=== PATIENT | male | born 1950 | race Caucasian/White ===

== ENCOUNTER 2017-03-17 14:23 | Emergency (ER) | payer OTHER, MEDICARE ==
[~2017-03-17] VITALS: Ht 167.6 cm; Wt 83.0 kg
[2017-03-17 14:27] VITALS: TEMP 36.6; Ht 167.6 cm; Wt 83.0 kg
--- NOTE | 2017-03-17 15:00 | EMERGENCY ROOM VISIT NOTE ---
History Report prepared by Ramirez: Nel Centeno Under the Supervision of: Dr. Cosme Hamilton M.D. First contact with patient: 14:45 Chief Complaint: CARDIAC ASSESSMENT Stated Complaint: ABNORMAL EKG-[facility] History of Present Illness The patient is a 67 year old male who presents to the Emergency Room with complaints of persistent bradycardia. He reports he went to [facility] this morning for dizziness and a feeling of his right ear being "clogged up". Both symptoms started last night. At [facility], he had a routine EKG that came back abnormal and his pulse was in the 40's, so he was referred to the ED. His PCP is Dr. Pennington with [facility]. The patient denies any previous cardiac history. He takes no medications to control his heart rate. He does take daily medication for cholesterol, GERD and anxiety. He believes his heart rate is typically slow, but he is not sure what the average number is. The patient denies any recent health issues or environmental factors that could be affecting his heart. He states at [facility], the provider he saw could find no wax in his right ear, but discussed starting him on steroids or an antibiotic. 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 A total of 10 systems reviewed and were otherwise negative. Past Medical & Surgical Medical Problems: (1) Anxiety (2) GERD (gastroesophageal reflux disease) (3) Hypercholesterolemia Social History Smoking Status: Never Smoker Alcohol Use: occasionally Drug Use: none Marital Status: Housing Status: lives with family Occupation Status: employed Current/Historical Medications Scheduled Doxepin (Sinequan), 10 MG PO HS Lorazepam (Ativan), 0.5 MG PO HS Omeprazole (Prilosec), 20 MG PO QAM Sertraline (Zoloft), 150 MG PO HS Simvastatin (Zocor), 40 MG PO QPM Scheduled PRN Salvgms-Sjryhdkcuibcs-Riskpmck (Excedrin Extra Strength), 1 TAB PO DAILY PRN for Headache or Pain Fluticasone Propionate (Nasal) (Flonase Allergy Relief), 2 SPRY CRISTELA DAILY PRN for Nasal Congestion Olopatadine Hydrochloride (Pataday), 1 DROPS OP DAILY PRN for Allergies Coded Allergies: No Known Allergies (Unverified , 03/17/17) Physical Exam Vital Signs Date Time Temp Pulse Resp B/P (MAP) Pulse Ox O2 Delivery O2 Flow Rate FiO2 03/17/17 15:34 46 18 160/88 95 Room Air 03/17/17 15:09 47 03/17/17 14:43 44 164/83 63 191/84 55 191/88 03/17/17 14:27 36.6 47 18 199/89 95 Room Air Physical Exam GENERAL: Patient is in no acute distress. HEENT: Fluid behind both ear drums, no infection. No acute trauma, normocephalic atraumatic, mucous membranes moist, no nasal congestion, no scleral icterus. NECK: No stridor, no adenopathy, no meningismus, trachea is midline. LUNGS: Clear to auscultation bilaterally, no wheeze, no rhonchi, breath sounds equal. HEART: Bradycardic heart rate, no murmurs, regular rhythm. ABDOMEN: Soft, nontender, bowel sounds positive, no hernias, no peritonitis. EXTREMITIES: No cyanosis or edema, full range of motion of all the joints without pain or difficulty, no signs for acute trauma. NEUROLOGIC: Oriented x 3, no acute motor or sensory deficits, no focal weakness. SKIN: No rash, no jaundice, no diaphoresis. Medical Decision & Procedures ECG Indication: bradycardia Rate (beats per minute): 43 Rhythm: sinus bradycardia Findings: no acute ischemic change, no ectopy ED Course 1449: The patient was evaluated in room C5. A complete history and physical exam was performed. 1452: Orthostatic vital signs are negative. 1506: I discussed the patients case with Dr. Pennington [facility]. He has recorded HR in the upper 40s in the office. The lowest he has recorded is 48. 1510: I discussed the patients case with [facility]. He states no further ED workup is recommended. 1519: I took a look at Doxepin and it does not cause bradycardia. 1623: I reevaluated the patient. He is feeling well and resting comfortably. I discussed his discharge instructions and he verbalized complete understanding and agreement. Medical Decision The differential diagnoses considered include bradycardia, dysrhythmia, anemia, electrolyte imbalance, medication reaction and murmur. The patient presents with bradycardia. He has a history of the same. He is not hypotensive, he is not short of breath. There is no chest pain. EKG shows a sinus bradycardia, no dysrhythmia. Orthostatic vital signs were negative. His heart rate did go to the 50s with stimulation. I discussed the case with the patient's family doctor. The patient has had heart rates in the upper 40s in the office. I discussed the case with cardiology. Outpatient follow-up was suggested. No emergent testing was felt required. The patient was discharged home. He was reassured. Sudafed was suggested [id number] for his ear congestion. Medication Reconcilliation Current Medication List: was personally reviewed by me Blood Pressure Screening Patient's blood pressure: Elevated blood pressure Blood pressure disposition: Elevated BP felt to be situational Consults Time Called: 1503 Consulting Physician: [facility] Returned Call: 1501 I discussed the patients case with [facility]. He has recorded HR in the upper 40s in the office. The lowest he has recorded is 48. Additional Consults: Time Called: 1509 Consulted Physician: [facility] Returned Call: 1510 Additional Comments: I discussed the patients case with [facility]. He states no further ED workup is recommended. Impression Primary Impression: Bradycardia Scribe Attestation The scribe's documentation has been prepared under my direction and personally reviewed by me in its entirety. I confirm that the note above accurately reflects all work, treatment, procedures, and medical decision making performed by me. Departure Information Dispostion Home / Self-Care Referrals Hemanth Pennington III, M.D. (PCP) Patient Instructions My [facility] Additional Instructions follow with pete rollins for a reheck and pulse check may be seeing cardiology because of the slower heart rate return if worsening or feel short of breath
[2017-03-17] MEDS ORDERED: PTDOPS OP (15:09)
[2017-03-17] MEDS ORDERED: PRLSR20 PO (15:09)
[2017-03-17] MEDS ORDERED: SIMV40TA2 PO (15:09)
[2017-03-17] MEDS ORDERED: SERT50TA PO (15:09)
[2017-03-17] MEDS ORDERED: DOXE10CA PO (15:09)
[2017-03-17] MEDS ORDERED: LORA-741 PO (15:09)
[2017-03-17] MEDS ORDERED: FLUT0.15 NAE (15:09)
[2017-03-17] MEDS ORDERED: ASPI-391 PO (15:10)
[2017-03-17 15:34] VITALS: BP 160/88; PULSE 46; O2SAT 95
== END 2017-03-17 15:35 | disposition home or self-care (01) ==
LOC: C.EDB 14:25 → C.EDC 15:35
DX: R00.1 Bradycardia, unspecified (principal); E78.00 Pure hypercholesterolemia, unspecified; K21.9 Gastro-esophageal reflux disease without esophagitis; F41.9 Anxiety disorder, unspecified; Z79.899 Other long term (current) drug therapy

== ENCOUNTER 2020-11-24 20:45 | Observation (INO) ==
[2020-11-24] MEDS ORDERED: SODIUM CHLORIDE 0.9% 500 ML IV STA (21:39)
[2020-11-24] MEDS ORDERED: ONDANSETRON INJ 2 MG/ML 2 ML VIAL IV STA (21:39)
[2020-11-24] MEDS ORDERED: MoRPHine SULFATE 4 MG/ML 1 ML CARP\\VIAL IV STA (21:39)
[2020-11-24 21:56] LABS: Basophils # (auto) 0.01 K/uL (0-0.2); Basophils % (auto) 0.1 %; Eosinophils # (auto) 0.18 K/uL (0-0.5); Eosinophils % (auto) 1.3 %; Hematocrit (blood only) 46.1 % (42-52); Hemoglobin 16.5 g/dL (14.0-18.0); Immature Granulocytes # (auto) 0.01 K/uL (0.00-0.02); Immature Granulocytes % (auto) 0.1 %; Lymphocytes # (auto) 0.78 K/uL (1.2-3.4); Lymphocytes % (auto) 5.6 %; Mean Corpuscular Hemoglobin 32.5 pg (25-34); Mean Corpuscular Hgb Conc 35.8 g/dL (32-36); Mean Corpuscular Volume 90.7 fL (80-100); Mean Platelet Volume 10.5 fL (7.4-10.4); Monocytes # (auto) 0.86 K/uL (0.11-0.59); Monocytes % (auto) 6.2 %; Neutrophils # (auto) 11.99 K/uL (1.4-6.5); Neutrophils % (auto) 86.7 %; Platelet Count 185 K/uL (130-400); RDW Coefficient of Variation 13.3 % (11.5-14.5); RDW Standard Deviation 43.4 fL (36.4-46.3); Red Blood Count 5.08 M/uL (4.7-6.1); White Blood Count 13.83 K/uL (4.8-10.8)
[2020-11-24 22:07] LABS: Alanine Aminotransferase 51 U/L (12-78); Albumin Level 4.3 gm/dl (3.4-5.0); Aspartate Aminotransferase 34 U/L (15-37); BUN Creatinine Ratio 19.9 (10-20); Blood Urea Nitrogen 19 mg/dl (7-18); Carbon Dioxide 27 mmol/L (21-32); Chloride 106 mmol/L (98-107); Creatinine Clr Calc Pharmacy 72.7 ml/min; Est GFR (African American) 92.4 ml/min; Est GFR (Non-African American) 79.8 ml/min; Glucose 102 mg/dl (70-99); Lipase 264 U/L (73-393); Potassium 3.7 mmol/L (3.5-5.1); Sodium 139 mmol/L (136-145)
[2020-11-24 22:10] LABS: Appearance Urine Clear (Clear); Bilirubin Urine Negative (Negative); Blood Urine Negative (Negative); Color Urine Yellow; Glucose Urine UA Negative (Negative); Ketones Urine Negative (Negative); Leukocyte Esterase Urine Negative (Negative); Nitrite Urine Negative (Negative); Protein Urine Negative (Negative); Specific Gravity Urine 1.025 (1.000-1.030); Urobilinogen Urine Negative (Negative)
[2020-11-24 22:12] LABS: Albumin Globulin Ratio 1.1 (0.9-2); Alkaline Phosphatase 88 U/L (45-117); Bilirubin,Total 0.5 mg/dl (0.2-1); Globulin 3.9 gm/dl (2.5-4.0); Total Protein 8.2 gm/dl (6.4-8.2); Troponin I < 0.015 ng/ml (0-0.045)
[2020-11-24] MEDS ORDERED: OPTIRAY 320 100ml IV ONE (22:40)
[2020-11-24] MEDS ORDERED: cefOXitin 2,000 MG/60 ML BAG IV STA (23:31)
--- NOTE | 2020-11-25 00:10 | History & Physical Report ---
Date of Service November 25, 2020 Assessment & Plan (1) Acute appendicitis: Patient will be admitted to the hospital and we will proceed as follows: Due to the patient's clinical status, physical exam findings, and imaging we will plan on performing appendectomy. I discussed the risks, benefits, and alternatives with the patient and he wishes to proceed. Informed consent has been obtained. We will provide analgesics We will provide antiemetics We will administer antibiotics. He has received a dose of cefoxitin in the emergency department We will hydrate with IV fluids We will keep the patient n.p.o. in anticipation of surgery. We will follow up on the Covid test that has been ordered Due to the patient's history of hypertension we will request a consultation with the hospitalist. His primary care physician is Dr. Pennington so we will consult the [facility] hospitalist team. Further recommendations will be based on his clinical course as it unfolds as well as operative findings SCDs will be utilized for DVT prevention. We will avoid chemical means in anticipation of surgery Dr. Davidson-patient seen in his room he is awake alert agree with above note. Patient with acute appendicitis. We will proceed with laparoscopic, possible open appendectomy early this morning. Discussed this with patient's . History of Present Illness Chief Complaint: Abdominal pain Primary Care Provider: Hemanth Pennington MD This is a 70-year-old male who presented [facility] [address] secondary abdominal pain. The patient notes over the past week he was in his usual state of health doing well. Earlier today the patient developed periumbilical abdominal pain that is subsequently shifted to the right lower quadrant. He notes the pain does not radiate anywhere else and he does not note any palliative factors other than trying to lie still. He does note the pain is somewhat worse with certain movements. He denies any fevers, shakes, chills. He denies any nausea or vomiting. He has not had any prior abdominal surgeries. In the emergency department the patient had labs and imaging which I independently reviewed. He had a CT scan of the abdomen pelvis that showed an inflamed appendix measuring approximate 1 cm with no evidence of perforation. Labs included a CBC where his white blood cell count was 13.8. Hemoglobin and hematocrit were both normal. His platelet count was noted to be normal. Chemistry profile showed his sodium, potassium, and creatinine were within normal range. A Covid test has been sent and is pending. An EKG showed sinus rhythm. There are no changes indicative of acute ischemia. Urinalysis was not indicative of infection. In addition the patient had a chest x-ray that showed no evidence of CHF or pneumonia Patient notes when he is feeling well he is active. He golfs several times per week. He notes he is able to perform the physical activity associated with golf without any chest pain or shortness of breath and he notes that he can negotiate least 2 flights of steps without chest pain or shortness of breath. At the time of interview was resting comfortably in bed in no distress. Allergies Allergy/AdvReac Type Severity Reaction Status Date / Time No Known Allergies Allergy Verified 11/24/20 22:42 Home Medications Medication Instructions Recorded Confirmed Type amlodipine 10 mg PO DAILY 11/24/20 11/24/20 History coenzyme Q10 [CoQ-10] 0 mg PO DAILY 11/24/20 11/24/20 History doxepin 10 mg PO HS 11/24/20 11/24/20 History fluticasone propionate [Flonase 2 spray INTRANASAL DAILY PRN 11/24/20 11/24/20 History Allergy Relief] loratadine-pseudoephedrine 1 tab PO DAILY PRN 11/24/20 11/24/20 History [Claritin-D 24 Hour] multivitamin 1 tab PO DAILY 11/24/20 11/24/20 History mupirocin 1 ea TOPICAL BID PRN 11/24/20 11/24/20 History omeprazole 20 mg PO DAILY 11/24/20 11/24/20 History sertraline 100 mg PO HS 11/24/20 11/24/20 History simvastatin 20 mg PO DAILY 11/24/20 11/24/20 History Past Med/Surg History Medical History (Updated 11/25/20 @ 00:32 by Laura Fam PA-C) Anal fistula High cholesterol Infection of skin of neck Surgical History (Updated 11/25/20 @ 00:28 by Laura Fam PA-C) No pertinent past surgical history Social History Smoking Status: Never smoker Hx Alcohol Use: Yes Alcohol type: beer Hx Substance Use: No Preferred Language: Kittitian Communication Ability: Effective Beliefs That Will Affect Care: None Current Living Situation: Spouse Feels Safe at Home: Yes Safety Concerns: Feels Safe At This Time Assistive Devices: CPAP and Glasses Review of Systems Constitutional: no fever and no chills Eyes: no diplopia Ear, Nose, Mouth, Throat: no ear pain Respiratory: no cough and no dyspnea Cardiovascular: no chest pain Gastrointestinal: + abdominal pain; no nausea and no vomiting Genitourinary: no dysuria Musculoskeletal: no back pain Integumentary: no rash Neurologic: no localized weakness Physical Exam Constitutional: well developed and well nourished; no acute distress Eyes: no conjunctival abnormality ENMT: Ears: no hearing impairment Neck: trachea midline Respiratory: normal respiratory effort, lungs clear to auscultation Cardiovascular: Rate/Rhythm: regular rate and regular rhythm Gastrointestinal (Abdomen): Abdomen is soft and nondistended. Bowel sounds are hypoactive. Patient had pain with palpation in the right lower quadrant over McBurney's point. He was noted to have a positive Rovsing sign. Rebound tenderness was noted. Musculoskeletal: No calf tenderness Skin: no rashes, warm and dry Neurologic: moves all extremities Psychiatric: A+Ox3, euthymic affect Results & Data Results & Data ([facility]) Vital Signs (Past 12 Hours) Vital Signs Temp Pulse Pulse Resp BP BP Pulse Ox 11/24/20 23:50 58 L 16 168/83 H 95 11/24/20 22:18 94 11/24/20 22:00 47 L 13 115/53 L 92 11/24/20 21:30 52 L 23 174/83 H 94 11/24/20 21:18 50 L 15 95 11/24/20 21:15 50 L 16 160/91 H 94 11/24/20 20:50 36.1 C L 55 L 18 133/67 96 PG Care Time/CCT Total # of Minutes Spent Total Time Spent with Patient: Total time spent is greater than 50% in coordination of care (as documented) at patient's floor/unit and/or counseling patient: Coding Level of Care Code 47206 OBS Care - Level 3 Diagnoses Acute appendicitis K35.80
--- NOTE | 2020-11-25 00:32 | Emergency Department Note ---
History of Present Illness General Chief complaint: Abdominal Pain Stated complaint: SEVERE STOMACH PAIN Time Seen by Provider: 11/24/20 21:23 History of Present Illness Maximum Pain Intensity: 8 This 70-year-old presents to the ER complaining of abdominal pain Location: Right lower quadrant Quality: Achy Severity: Moderate Duration: Today Timing: Today Context: Pain persisted and patient came in Modifying factors: better with rest; worse with activity No prior abdominal surgeries. Patient denies chest pain, dyspnea, vomiting, diarrhea, flank pain, urinary symptoms, testicular pain or penile pain. No injury to the area. Home Medications Medication Instructions Recorded Confirmed Type amlodipine 10 mg PO DAILY 11/24/20 11/24/20 History coenzyme Q10 [CoQ-10] 0 mg PO DAILY 11/24/20 11/24/20 History doxepin 10 mg PO HS 11/24/20 11/24/20 History fluticasone propionate [Flonase 2 spray INTRANASAL DAILY PRN 11/24/20 11/24/20 History Allergy Relief] loratadine-pseudoephedrine 1 tab PO DAILY PRN 11/24/20 11/24/20 History [Claritin-D 24 Hour] multivitamin 1 tab PO DAILY 11/24/20 11/24/20 History mupirocin 1 ea TOPICAL BID PRN 11/24/20 11/24/20 History omeprazole 20 mg PO DAILY 11/24/20 11/24/20 History sertraline 100 mg PO HS 11/24/20 11/24/20 History simvastatin 20 mg PO DAILY 11/24/20 11/24/20 History Allergies Allergy/AdvReac Type Severity Reaction Status Date / Time No Known Allergies Allergy Verified 11/24/20 22:42 Past Med/Surg History Medical History (Updated 11/25/20 @ 00:32 by Laura Fam PA-C) Anal fistula High cholesterol Infection of skin of neck Surgical History (Updated 11/25/20 @ 00:28 by Laura Fam PA-C) No pertinent past surgical history Social History Smoking Status: Never smoker Preferred Language: Faroese Feels Safe at Home: Yes Review of Systems A total of 10 systems reviewed and were otherwise negative Physical Exam Vital Signs Vital Signs - 24 hr 11/24/20 20:50 11/24/20 21:15 11/24/20 21:18 Temperature 36.1 C L Temperature Source Temporal Artery Scan Pulse Rate 55 L 50 L 50 L Pulse Rate [Right] Pulse Rate from SpO2 Sensor 49 L 50 L Pulse Rhythm [Right] Respiratory Rate 18 16 15 Respiratory Effort / Characteristics Non-Labored Spontaneous Respiratory Depth Normal Respiratory Pattern Regular Blood Pressure 133/67 160/91 H Blood Pressure [Right Arm] Blood Pressure Mean 89 114 Blood Pressure Mean [Right Arm] Blood Pressure Position Sitting Pulse Oximetry 96 94 95 Oxygen Delivery Method Room Air Sepsis Recent Fever Within 48 Hours No Sepsis New/Unexplained Change in Mental Status N/A Sepsis Action Taken by Nursing No Action Required 11/24/20 21:30 11/24/20 22:00 11/24/20 22:18 Temperature Temperature Source Pulse Rate 52 L 47 L Pulse Rate [Right] Pulse Rate from SpO2 Sensor 52 L 47 L Pulse Rhythm [Right] Respiratory Rate 23 13 Respiratory Effort / Characteristics Respiratory Depth Respiratory Pattern Blood Pressure 174/83 H 115/53 L Blood Pressure [Right Arm] Blood Pressure Mean 113 73 Blood Pressure Mean [Right Arm] Blood Pressure Position Pulse Oximetry 94 92 94 Oxygen Delivery Method Room Air Sepsis Recent Fever Within 48 Hours Sepsis New/Unexplained Change in Mental Status Sepsis Action Taken by Nursing 11/24/20 23:50 Temperature Temperature Source Pulse Rate Pulse Rate [Right] 58 L Pulse Rate from SpO2 Sensor Pulse Rhythm [Right] Regular Respiratory Rate 16 Respiratory Effort / Characteristics Non-Labored Spontaneous Respiratory Depth Normal Respiratory Pattern Blood Pressure Blood Pressure [Right Arm] 168/83 H Blood Pressure Mean Blood Pressure Mean [Right Arm] 111 Blood Pressure Position Pulse Oximetry 95 Oxygen Delivery Method Room Air Sepsis Recent Fever Within 48 Hours Sepsis New/Unexplained Change in Mental Status Sepsis Action Taken by Nursing VITALS: Vitals are noted on the nurse's note and reviewed by myself. Vital signs stable. GENERAL: Pleasant male, in no acute distress, nondiaphoretic, well-developed well-nourished. SKIN: The skin was without rashes, erythema, edema, or bruising. There is no tenting of the skin. Capillary reflex less than 2 seconds. HEAD: Normocephalic atraumatic. EARS: External auditory canals clear, EYES: Pupils equal round and reactive to light and accommodation. Conjunctivae without injection, sclerae without icterus. Extraocular movements intact. NOSE: Patent, turbinates without inflammation or discharge. MOUTH: Mucous membranes moist. Pharynx without erythema or exudate. Uvula midline. Airway patent. Tongue does not deviate. NECK: Supple without nuchal rigidity. No lymphadenopathy. No thyromegaly. Cervical spine is nontender. No JVD. HEART: Regular rate and rhythm LUNGS: Clear to auscultation bilaterally without wheezes, rales or rhonchi. No retractions or accessory muscle use. ABDOMEN: Positive bowel sounds x 4. Normal tympanic percussion. Soft, tender to palpation right lower quadrant, without masses or organomegaly. Chaves sign negative. No guarding or rebound tenderness. No CVA tenderness MUSCULOSKELETAL: No muscle atrophy, erythema, or edema noted. NEURO: Patient was alert and oriented to person place and time. Normal sensati on to light and sharp touch. No focal neurological deficits. Course Administered Medications Discontinued Medications Sodium Chloride (Nss) 500 mls @ 999 mls/hr IV .Q31M STA Stop: 11/24/20 22:09 Last Infusion: 11/24/20 22:50 Dose: 0 mls/hr Documented by: [id number] Admin: 11/24/20 22:00 Dose: 999 mls/hr Documented by: [id number] Cefoxitin Sodium (Mefoxin) 2,000 mg in 60 mls @ 100 mls/hr IV NOW STA Stop: 11/25/20 00:06 Last Infusion: 11/25/20 00:26 Dose: 0 mls/hr Documented by: [id number] Admin: 11/24/20 23:45 Dose: 100 mls/hr Documented by: [id number] Ioversol (Optiray 320 100ml) 94 ml IV ONCE ONE Stop: 11/24/20 22:41 Last Admin: 11/24/20 22:41 Dose: 94 ml Documented by: [id number] Morphine Sulfate (Morphine Sulfate 4 Mg/Ml 1 Ml Carp\Vial) 4 mg IV NOW STA Stop: 11/24/20 21:40 Last Admin: 11/24/20 21:51 Dose: 4 mg Documented by: [id number] Ondansetron HCl (Ondansetron Inj 2 Mg/Ml 2 Ml Vial) 4 mg IV NOW STA Stop: 11/24/20 21:40 Last Admin: 11/24/20 21:51 Dose: 4 mg Documented by: [id number] Medical Decision Making Medical Records Attestation: I reviewed the patient's medical records. Home Medications Current Medication List: was personally reviewed by me Laboratory Data Attestation: I reviewed the patient's lab results. Result diagrams: 11/24/20 21:10 11/24/20 21:10 Lab Results 11/24/20 11/24/20 11/24/20 Range/Units 21:10 21:10 21:20 WBC 13.83 H (4.8-10.8) K/uL RBC 5.08 (4.7-6.1) M/uL Hgb 16.5 (14.0-18.0) g/dL Hct 46.1 (42-52) % MCV 90.7 (80-100) fL MCH 32.5 (25-34) pg MCHC 35.8 (32-36) g/dL RDW Std Deviation 43.4 (36.4-46.3) fL RDW Coeff of Tanner 13.3 (11.5-14.5) % Plt Count 185 (130-400) K/uL MPV 10.5 H (7.4-10.4) fL Immature Gran % (Auto) 0.1 % Neut % (Auto) 86.7 % Lymph % (Auto) 5.6 % [place] % (Auto) 6.2 % Eos % (Auto) 1.3 % Baso % (Auto) 0.1 % Neut # (Auto) 11.99 H (1.4-6.5) K/uL Lymph # (Auto) 0.78 L (1.2-3.4) K/uL [place] # (Auto) 0.86 H (0.11-0.59) K/uL Eos # (Auto) 0.18 (0-0.5) K/uL Baso # (Auto) 0.01 (0-0.2) K/uL Immature Gran # (Auto) 0.01 (0.00-0.02) K/uL Sodium 139 (136-145) mmol/L Potassium 3.7 (3.5-5.1) mmol/L Chloride 106 (98-107) mmol/L Carbon Dioxide 27 (21-32) mmol/L Anion Gap 6.0 (3-11) BUN 19 H (7-18) mg/dl Creatinine 0.96 (0.6-1.4) mg/dl Est Cr Clr Drug Dosing 72.7 ml/min Est GFR ( Amer) 92.4 ml/min Est GFR (Non-Af Amer) 79.8 ml/min BUN/Creatinine Ratio 19.9 (10-20) Glucose 102 H (70-99) mg/dl Calcium 9.0 (8.5-10.1) mg/dl Total Bilirubin 0.5 (0.2-1) mg/dl AST 34 (15-37) U/L ALT 51 (12-78) U/L Alkaline Phosphatase 88 (45-117) U/L Troponin I < 0.015 (0-0.045) ng/ml Total Protein 8.2 (6.4-8.2) gm/dl Albumin 4.3 (3.4-5.0) gm/dl Globulin 3.9 (2.5-4.0) gm/dl Albumin/Globulin Ratio 1.1 (0.9-2) Lipase 264 (73-393) U/L Urine Color Yellow Urine Appearance Clear (Clear) Urine pH 7.0 (4.5-7.5) Ur Specific [place] 1.025 (1.000-1.030) Urine Protein Negative (Negative) Urine Glucose (UA) Negative (Negative) Urine Ketones Negative (Negative) Urine Blood Negative (Negative) Urine Nitrite Negative (Negative) Urine Bilirubin Negative (Negative) Urine Urobilinogen Negative (Negative) Ur Leukocyte Esterase Negative (Negative) COVID-19 Eval Order 11/24/20 Range/Units 23:45 WBC (4.8-10.8) K/uL RBC (4.7-6.1) M/uL Hgb (14.0-18.0) g/dL Hct (42-52) % MCV (80-100) fL MCH (25-34) pg MCHC (32-36) g/dL RDW Std Deviation (36.4-46.3) fL RDW Coeff of Tanner (11.5-14.5) % Plt Count (130-400) K/uL MPV (7.4-10.4) fL Immature Gran % (Auto) % Neut % (Auto) % Lymph % (Auto) % [place] % (Auto) % Eos % (Auto) % Baso % (Auto) % Neut # (Auto) (1.4-6.5) K/uL Lymph # (Auto) (1.2-3.4) K/uL [place] # (Auto) (0.11-0.59) K/uL Eos # (Auto) (0-0.5) K/uL Baso # (Auto) (0-0.2) K/uL Immature Gran # (Auto) (0.00-0.02) K/uL Sodium (136-145) mmol/L Potassium (3.5-5.1) mmol/L Chloride (98-107) mmol/L Carbon Dioxide (21-32) mmol/L Anion Gap (3-11) BUN (7-18) mg/dl Creatinine (0.6-1.4) mg/dl Est Cr Clr Drug Dosing ml/min Est GFR ( Amer) ml/min Est GFR (Non-Af Amer) ml/min BUN/Creatinine Ratio (10-20) Glucose (70-99) mg/dl Calcium (8.5-10.1) mg/dl Total Bilirubin (0.2-1) mg/dl AST (15-37) U/L ALT (12-78) U/L Alkaline Phosphatase (45-117) U/L Troponin I (0-0.045) ng/ml Total Protein (6.4-8.2) gm/dl Albumin (3.4-5.0) gm/dl Globulin (2.5-4.0) gm/dl Albumin/Globulin Ratio (0.9-2) Lipase (73-393) U/L Urine Color Urine Appearance (Clear) Urine pH (4.5-7.5) Ur Specific [place] (1.000-1.030) Urine Protein (Negative) Urine Glucose (UA) (Negative) Urine Ketones (Negative) Urine Blood (Negative) Urine Nitrite (Negative) Urine Bilirubin (Negative) Urine Urobilinogen (Negative) Ur Leukocyte Esterase (Negative) COVID-19 Eval Order Covid19 at [facility] Imaging Data Attestation: I personally reviewed and interpreted this imaging study as follows: MDM Narrative Prior records/ancillary studies reviewed. Triage Nursing notes reviewed. Additional history obtained from family. The patient's history was concerning for abdominal pain. Differential diagnosis: Etiologies such as appendicitis, diverticulitis, PUD, biliary pathology, UTI, pancreatitis, obstruction, mesenteric ischemia, aortic pathology, infections, inflammatory bowel disease, renal colic, as well as others were entertained. Physical examination findings: As above. ER treatment provided: An order was placed for continuous cardiac monitoring. The monitor shows a rate of 40-80 with a sinus rhythm. IV fluids, morphine, Zofran, Mefoxin On reassessment the patient felt better. Diagnostics interpreted by me: ECG: EKG ordered for abdominal pain EKG: Normal sinus, normal intervals, no acute ST-T wave changes. Incomplete right bundle branch block, impression sinus bradycardia with an incomplete right bundle branch block interpreted by myself I think arrhythmia is unlikely. EKG shows normal sinus rhythm with no interval abnormalities such as QT prolongation or WPW. There are no findings to suggest Brugada syndrome. Cardiac monitoring in the emergency department reveals no tachycardic or bradycardic dysrhythmia. Hypertrophic cardiomyopathy was considered but there are no clear historical elements pointing toward this. EKG is not suggestive. The QRS voltage is not extremely large and there are no suggestive Q waves. The labs revealed leukocytosis, negative troponin, negative urine Imaging studies: CT ABDOMEN & PELVIS With Contrast: Appendicitis. The inflamed appendix measures approximately1 cm. No abscess. Small hiatal hernia. Right renal cysts Colonic diverticulawithout diverticulitis. Radiologist: Cathryn Estrada M.D Chest x-ray with no acute consolidation, pneumothorax or free air per my interpretation Consultation: A consultation was placed with surgery. The case was discussed and diagnostics were reviewed. The patient was evaluated in the ER for further treatment. Exam and history seem consistent with acute appendicitis. Surgery evaluated the patient and will admit. Patient start antibiotics. Results reviewed with patient. All questions were answered. By the evaluation outlined above emergent etiologies such as diverticulitis, PUD, biliary pathology, UTI, pancreatitis, obstruction, mesenteric ischemia, aortic pathology, inflammatory bowel disease, renal colic, as well as others were deemed relatively unlikely. The pt informed about the findings as listed above. All questions were answered and pleased with the treatment. The chart was completed utilizing [employer] voice recognition software. Grammatical errors, random word insertions, pronoun errors, and incomplete sentences are an occassional consequence of this system due to software limitations, ambient noise, and hardware issues. Any formal questions or con cerns about the content, text, or information contained within the body of this dictation should be directly addressed to the physician customer marketing assistant for clarification. Impression & Plan Acute appendicitis Discharge Plan Visit Data Chief Complaint: Abdominal Pain Stated Complaint: SEVERE STOMACH PAIN ED Provider: Herminia Iraheta ED Midlevel Provider: Laura Fam Discharge Problem: Acute appendicitis Patient Disposition: Admitted As Inpatient Condition: Good Forms Stand Alone Forms: [facility] Prescriptions Prescriptions: No Action multivitamin Tablet 1 tab PO DAILY RF: 0 doxepin 10 mg capsule 10 mg PO HS RF: 0 loratadine-pseudoephedrine [Claritin-D 24 Hour] 10-240 mg Tablet Extended Release 24 Hr 1 tab PO DAILY PRN (Reason: allergies) RF: 0 amlodipine 10 mg tablet 10 mg PO DAILY RF: 0 simvastatin 20 mg tablet 20 mg PO DAILY RF: 0 omeprazole 20 mg capsule,delayed release(DR/EC) 20 mg PO DAILY RF: 0 mupirocin 2 % ointment 1 ea TOPICAL BID PRN (Reason: FLARE UPS) RF: 0 fluticasone propionate [Flonase Allergy Relief] 50 mcg/actuation [place],Suspension 2 spray INTRANASAL DAILY PRN (Reason: ALLERGIES) RF: 0 sertraline 50 mg tablet 100 mg PO HS RF: 0 coenzyme Q10 [CoQ-10] 100 mg Capsule 0 mg PO DAILY RF: 0 Referrals Referrals: Hemanth Pennington MD [Primary Care Provider] -
[2020-11-25 00:40] LABS: Magnesium 2.3 mg/dl (1.8-2.4)
--- NOTE | 2020-11-25 00:46 | Emergency Department Note ---
ED Visit Note Patient seen and evaluated after discussion with physician occupational therapy assistant. We did review CT findings. Surgery has been consulted and has seen the patient at bedside. Patient hemodynamically stable and pain controlled. Patient aware of all findings, verbalized understanding. . : Acute appendicitis Qualifiers: Acute appendicitis type: with localized peritonitis Appendicitis gangrene presence: unspecified whether gangrene present Appendicitis perforation presence: without perforation Appendicitis abscess presence: without abscess Qualified Code(s): K35.30 - Acute appendicitis with localized peritonitis, without perforation or gangrene
--- NOTE | 2020-11-25 00:50 | Hospitalist Consultation ---
Date of Consultation November 25, 2020 Assessment & Plan (1) Acute appendicitis: Final Assessment and Recommendations as follows : Acute appendicitis Hypertension, uncontrolled secondary to pain chronic bradycardia Systolic murmur mood disorder, stable MINNIE on CPAP Management of appendicitis as per General Surgery. Analgesia Avoid NSAIDs Facilitate Amlodipine Outpatient 2D echo for systolic murmur DVT prophylaxis. SCDs as per General Surgery admission orders Thank you very much for this consultation. Dr. Gr will follow patient's progress. History of Present Illness Reason for Consultation: Medical management Requesting Physician: Dr. Davidson/Sunil Bates PA-C Attending Physician: Dr. Davidson History of Present Illness PCP Dr. Pennington History obtained from patient and records. Medical history significant for hypertension, chronic bradycardia, hyperl ipidemia, mood disorder, MINNIE on CPAP. Yesterday morning, patient noted achy periumbilical discomfort which later localized to the right lower quadrant. Some nausea/queasiness. No emesis. No fever, no chills. No chest pain, no shortness of breath, no headache. No prior episodes in the past. At the ER, IV Cefoxitin given for appendicitis. SBP 170s at the highest at the ER. 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 Allergies Allergy/AdvReac Type Severity Reaction Status Date / Time No Known Allergies Allergy Verified 11/24/20 22:42 Home Medications Medication Instructions Recorded Confirmed Type amlodipine 10 mg PO DAILY 11/24/20 11/24/20 History coenzyme Q10 [CoQ-10] 0 mg PO DAILY 11/24/20 11/24/20 History doxepin 10 mg PO HS 11/24/20 11/24/20 History fluticasone propionate [Flonase 2 spray INTRANASAL DAILY PRN 11/24/20 11/24/20 History Allergy Relief] loratadine-pseudoephedrine 1 tab PO DAILY PRN 11/24/20 11/24/20 History [Claritin-D 24 Hour] multivitamin 1 tab PO DAILY 11/24/20 11/24/20 History mupirocin 1 ea TOPICAL BID PRN 11/24/20 11/24/20 History omeprazole 20 mg PO DAILY 11/24/20 11/24/20 History sertraline 100 mg PO HS 11/24/20 11/24/20 History simvastatin 20 mg PO DAILY 11/24/20 11/24/20 History Patient History Medical History (Updated 11/25/20 @ 00:32 by Laura Fam PA-C) Anal fistula High cholesterol Infection of skin of neck Surgical History (Updated 11/25/20 @ 00:28 by Laura Fam PA-C) No pertinent past surgical history Social History Smoking Status: Never smoker Hx Alcohol Use: Yes Alcohol type: beer Hx Substance Use: No Preferred Language: Belarusian Communication Ability: Effective Beliefs That Will Affect Care: None Current Living Situation: Spouse Feels Safe at Home: Yes Safety Concerns: Feels Safe At This Time Assistive Devices: CPAP and Glasses Review of Systems Review of Systems: As per HPI, all 10 systems reviewed, all other ROS negative Physical Exam Physical Exam: GENERAL: Comfortable, pleasant, looks younger than stated age, no respiratory distress SKIN: Normal color, warm HEENT: Alopecia, bespectacled, pink palpebral conjunctivae, no ptosis, dry buccal mucosa NECK : Supple, no tenderness CHEST : CTA, no tenderness HEART : Bradycardic, systolic murmur best heard over left sternal border ABDOMEN: Some distention, RLQ tenderness EXTREMITIES : No LE swelling/tenderness, no other conspicuous deformities noted NEUROLOGIC : Coherent, no facial asymmetry, no other gross focality Results & Data Results & Data ([facility]) Vital Signs (Past 12 Hours) Vital Signs Temp Pulse Pulse Resp BP BP Pulse Ox 11/24/20 23:50 58 L 16 168/83 H 95 11/24/20 22:18 94 11/24/20 22:00 47 L 13 115/53 L 92 11/24/20 21:30 52 L 23 174/83 H 94 11/24/20 21:18 50 L 15 95 11/24/20 21:15 50 L 16 160/91 H 94 11/24/20 20:50 36.1 C L 55 L 18 133/67 96 Laboratory Results Laboratory Results WBC 13.83 K/uL (4.8-10.8) H 11/24/20 21:10 RBC 5.08 M/uL (4.7-6.1) 11/24/20 21:10 Hgb 16.5 g/dL (14.0-18.0) 11/24/20 21:10 Hct 46.1 % (42-52) 11/24/20 21:10 MCV 90.7 fL (80-100) 11/24/20 21:10 MCH 32.5 pg (25-34) 11/24/20 21:10 MCHC 35.8 g/dL (32-36) 11/24/20 21:10 RDW Std Deviation 43.4 fL (36.4-46.3) 11/24/20 21:10 RDW Coeff of Tanner 13.3 % (11.5-14.5) 11/24/20 21:10 Plt Count 185 K/uL (130-400) 11/24/20 21:10 MPV 10.5 fL (7.4-10.4) H 11/24/20 21:10 Immature Gran % (Auto) 0.1 % 11/24/20 21:10 Neut % (Auto) 86.7 % 11/24/20 21:10 Lymph % (Auto) 5.6 % 11/24/20 21:10 [place] % (Auto) 6.2 % 11/24/20 21:10 Eos % (Auto) 1.3 % 11/24/20 21:10 Baso % (Auto) 0.1 % 11/24/20 21:10 Neut # (Auto) 11.99 K/uL (1.4-6.5) H 11/24/20 21:10 Lymph # (Auto) 0.78 K/uL (1.2-3.4) L 11/24/20 21:10 [place] # (Auto) 0.86 K/uL (0.11-0.59) H 11/24/20 21:10 Eos # (Auto) 0.18 K/uL (0-0.5) 11/24/20 21:10 Baso # (Auto) 0.01 K/uL (0-0.2) 11/24/20 21:10 Immature Gran # (Auto) 0.01 K/uL (0.00-0.02) 11/24/20 21:10 Sodium 139 mmol/L (136-145) 11/24/20 21:10 Potassium 3.7 mmol/L (3.5-5.1) 11/24/20 21:10 Chloride 106 mmol/L (98-107) 11/24/20 21:10 Carbon Dioxide 27 mmol/L (21-32) 11/24/20 21:10 Anion Gap 6.0 (3-11) 11/24/20 21:10 BUN 19 mg/dl (7-18) H 11/24/20 21:10 Creatinine 0.96 mg/dl (0.6-1.4) 11/24/20 21:10 Est Cr Clr Drug Dosing 72.7 ml/min 11/24/20 21:10 Est GFR ( Amer) 92.4 ml/min 11/24/20 21:10 Est GFR (Non-Af Amer) 79.8 ml/min 11/24/20 21:10 BUN/Creatinine Ratio 19.9 (10-20) 11/24/20 21:10 Glucose 102 mg/dl (70-99) H 11/24/20 21:10 Calcium 9.0 mg/dl (8.5-10.1) 11/24/20 21:10 Magnesium 2.3 mg/dl (1.8-2.4) 11/24/20 21:10 Total Bilirubin 0.5 mg/dl (0.2-1) 11/24/20 21:10 AST 34 U/L (15-37) 11/24/20 21:10 ALT 51 U/L (12-78) 11/24/20 21:10 Alkaline Phosphatase 88 U/L (45-117) 11/24/20 21:10 Troponin I < 0.015 ng/ml (0-0.045) 11/24/20 21:10 Total Protein 8.2 gm/dl (6.4-8.2) 11/24/20 21:10 Albumin 4.3 gm/dl (3.4-5.0) 11/24/20 21:10 Globulin 3.9 gm/dl (2.5-4.0) 11/24/20 21:10 Albumin/Globulin Ratio 1.1 (0.9-2) 11/24/20 21:10 Lipase 264 U/L (73-393) 11/24/20 21:10 TSH 1.750 uIu/ml (0.300-4.500) 11/24/20 21:10 Urine Color Yellow 11/24/20 21:20 Urine Appearance Clear (Clear) 11/24/20 21:20 Urine pH 7.0 (4.5-7.5) 11/24/20 21:20 Ur Specific [place] 1.025 (1.000-1.030) 11/24/20 21:20 Urine Protein Negative (Negative) 11/24/20 21:20 Urine Glucose (UA) Negative (Negative) 11/24/20 21:20 Urine Ketones Negative (Negative) 11/24/20 21:20 Urine Blood Negative (Negative) 11/24/20 21:20 Urine Nitrite Negative (Negative) 11/24/20 21:20 Urine Bilirubin Negative (Negative) 11/24/20 21:20 Urine Urobilinogen Negative (Negative) 11/24/20 21:20 Ur Leukocyte Esterase Negative (Negative) 11/24/20 21:20 COVID-19 Eval Order Covid19 at [facility] 11/24/20 23:45 SARS-CoV-2 (PCR) NEGATIVE (Negative) 11/24/20 23:[address] abdomen pelvis initial read: Appendicitis measuring approximately 1 cm. No abscess. Small hiatal hernia. Right renal cyst. Colonic diverticula without diverticulitis. Chest x-ray as per my interpretation cardiomegaly EKG as per my interpretation : Rate 45, sinus bradycardia, incomplete right bundle branch block, T wave flattening inferior leads (1) Acute appendicitis Acute appendicitis type: with localized peritonitis Appendicitis abscess presence: without abscess Appendicitis gangrene presence: unspecified whether gangrene present Appendicitis perforation presence: without perforation Qualified Code(s): K35.30 - Acute appendicitis with localized peritonitis, without perforation or gangrene
[2020-11-25] MEDS ORDERED: ONDANSETRON INJ 2 MG/ML 2 ML VIAL IV PRN ×2 (01:15→04:52)
[2020-11-25] MEDS ORDERED: FLUTICASONE PROPIONATE NA SPR 16 GM BTL PRN (01:15)
[2020-11-25] MEDS ORDERED: ACETAMINOPHEN 1,000 MG/100 ML VIAL IV PRN (01:15)
[2020-11-25] MEDS: LACTATED RINGER'S 1,000 ML IV SCH ×2 (01:39→16:53)
[2020-11-25] MEDS: amLODIPine BESYLATE 5 MG TAB PO SCH (01:50)
[2020-11-25] MEDS ORDERED: hydrALAZINE HCL 20 MG/ML VIAL IV ONE (02:41)
[2020-11-25] MEDS: MoRPHine SULFATE 4 MG/ML 1 ML CARP\\VIAL IV PRN ×2 (04:06→07:57)
--- NOTE | 2020-11-25 04:51 | Anesthesiology Consultation ---
Date of Service November 25, 2020 Assessment & Plan (1) Encounter for pre-operative examination: Chart Review Chart Review: charge entry initiated History Height/Weight Height: 5 ft 6 in Weight: 81.5 kg Allergies Allergy/AdvReac Type Severity Reaction Status Date / Time No Known Allergies Allergy Verified 11/24/20 22:42 Medications Home Medications Medication Instructions Recorded Confirmed Last Taken amlodipine 10 mg PO DAILY 11/24/20 11/24/20 Unknown coenzyme Q10 [CoQ-10] 0 mg PO DAILY 11/24/20 11/24/20 Unknown doxepin 10 mg PO HS 11/24/20 11/24/20 Unknown fluticasone propionate [Flonase 2 spray INTRANASAL DAILY PRN 11/24/20 11/24/20 Unknown Allergy Relief] loratadine-pseudoephedrine 1 tab PO DAILY PRN 11/24/20 11/24/20 Unknown [Claritin-D 24 Hour] multivitamin 1 tab PO DAILY 11/24/20 11/24/20 Unknown mupirocin 1 ea TOPICAL BID PRN 11/24/20 11/24/20 Unknown omeprazole 20 mg PO DAILY 11/24/20 11/24/20 Unknown sertraline 100 mg PO HS 11/24/20 11/24/20 Unknown simvastatin 20 mg PO DAILY 11/24/20 11/24/20 Unknown Active Medications Generic Name Dose Route Start Last Admin Trade Name Freq PRN Reason Stop Dose Admin Amlodipine Besylate 10 mg 11/25/20 01:40 11/25/20 01:50 Amlodipine Besylate 5 Mg Tab PO 12/25/20 01:39 10 mg DAILY JULIANA Administration Lactated Ringer's 1,000 mls @ 75 mls/hr 11/25/20 01:15 11/25/20 01:39 Lr IV 12/25/20 01:14 75 mls/hr .[id number] JULIANA Administration Morphine Sulfate 3 mg 11/25/20 01:15 11/25/20 04:06 Morphine Sulfate 4 Mg/Ml 1 Ml Carp\Vial IV 12/09/20 01:14 3 mg Q3H PRN Administration Pain NPO Date Last Intake of Fluids: 11/24/20 Time Last Intake of Fluids: 18:00 Date Last Intake of Solids: 11/24/20 Time Last Intake of Solids: 18:00 Past Medical History Medical History Anal fistula High cholesterol Infection of skin of neck Past Surgical History Surgical History No pertinent past surgical history Social History Smoking Status: Never smoker Hx Alcohol Use: Yes Alcohol type: beer alcohol intake frequency: a few times a month Hx Substance Use: No substance use type: does not use Physical Exam Vital Signs Last Vital Signs Temp 98.2 F 11/25/20 01:21 Pulse 50 L 11/25/20 01:42 Resp 30 H 11/25/20 01:42 BP 141/67 H 11/25/20 01:21 Pulse Ox 93 11/25/20 01:42 Testing Laboratory Results 11/24/20 21:10 11/24/20 21:10 Urine Color Yellow 11/24/20 21:20 Urine Appearance Clear (Clear) 11/24/20 21:20 Urine pH 7.0 (4.5-7.5) 11/24/20 21:20 Ur Specific [place] 1.025 (1.000-1.030) 11/24/20 21:20 Urine Protein Negative (Negative) 11/24/20 21:20 Urine Glucose (UA) Negative (Negative) 11/24/20 21:20 Urine Ketones Negative (Negative) 11/24/20 21:20 Urine Nitrite Negative (Negative) 11/24/20 21:20 Ur Leukocyte Esterase Negative (Negative) 11/24/20 21:20 Laboratory Tests 11/24/20 23:45 SARS-CoV-2 (PCR) NEGATIVE Electrocardiogram Date: 11/24/20 Sinus bradycardia, rate 47 bpm Incomplete right bundle branch block Borderline ECG When compared with ECG of 17-MAR-2017 14:36, ST no longer elevated in Anterior leads
[2020-11-25] MEDS ORDERED: ATROPINE SULFATE 0.1 MG/ML 10ML SYR IV PRN (04:52)
[2020-11-25] MEDS ORDERED: fentaNYL citrate 100 MCG/2 ML VIAL IV PRN (04:52)
[2020-11-25] MEDS ORDERED: ePHEDrine sulfate 50 MG/ML AMP IV PRN (04:52)
[2020-11-25] MEDS ORDERED: fentaNYL citrate 100 MCG/2 ML VIAL ONE (04:58)
[2020-11-25] MEDS ORDERED: PROPOFOL IV EMULSION 10 MG/ML 20 ML VIAL IV ONE (05:01)
[2020-11-25] MEDS ORDERED: LIDOCAINE 2% 2 ML VIAL/AMP(20MG/ML) INFIL ONE (05:01)
[2020-11-25] MEDS ORDERED: BUPIVACAINE 0.5 % 5 MG/1 ML MPF 30ML VIAL ONE (05:19)
[2020-11-25] MEDS: cefOXitin 2,000 MG in DEXTROSE 5% 50 ML IV SCH ×4 (05:38→23:00)
[2020-11-25] MEDS ORDERED: ROCURONIUM BROMIDE 10 MG/ML 5 ML VIAL IV ONE (05:48)
[2020-11-25] MEDS ORDERED: ePHEDrine sulfate 50 MG/ML SYR ONE (05:57)
[2020-11-25] MEDS ORDERED: NEOSTIGMINE METHYLSULFATE 1 MG/ML 10ML VIAL ONE (06:00)
[2020-11-25] MEDS ORDERED: GLYCOPYRROLATE 0.2 MG/ML VIAL ONE (06:00)
[2020-11-25] MEDS ORDERED: FLOSEAL HEMOSTATIC MATRIX 10ML TOP ONE (06:11)
[2020-11-25] MEDS ORDERED: ACETAMINOPHEN 1,000 MG/100 ML VIAL IV ONE (06:33)
--- NOTE | 2020-11-25 06:33 | Post Operative Brief Note ---
PG Immediate Post Op with CF Date of Surgery November 25, 2020 Pre & Post Diagnosis Operation Date: 11/25/20 05:30 Pre-Op Diagnosis: Acute Appendicitis Post-Op Diagnosis: Acute Appendicitis I identified the patient and participated in the time-out.: Yes Procedure Operation Date: 11/25/20 05:30 Actual Procedures p Laparoscopic Appendectomy - Choco Davidson MD, FACS Surgeon Choco Davidson MD, FACS Professor Of Social Work B [place] Estimated Blood Loss 20 Findings Consistent with Post-Op Diagnosis Specimens Specimen Description: Permanent Specimen A: Appendix
[2020-11-25] MEDS ORDERED: PROMETHAZINE HCL 12.5 MG in SODIUM CHLORIDE 0.9% 50 ML IV PRN (07:43)
[2020-11-25] MEDS ORDERED: PROMETHAZINE HCL 25 MG in SODIUM CHLORIDE 0.9% 50 ML IV PRN (07:43)
[2020-11-25] MEDS ORDERED: ACETAMINOPHEN 325 MG TAB PO PRN (07:43)
[2020-11-25] MEDS ORDERED: HYDROmorphone INJ 0.5 MG/0.5 ML SYR IV PRN (07:43)
--- NOTE | 2020-11-25 07:47 | XRay Report ---
SINGLE VIEW CHEST CLINICAL HISTORY: Generalized abdominal pain. FINDINGS: An AP, portable, semierect chest radiograph is obtained. No prior studies are available for comparison at the time of dictation. The examination is degraded by portable technique and apical lo rdotic positioning. The heart is enlarged. The pulmonary vasculature is noncongested. There is bibasi lar atelectasis. The lungs and pleural spaces are otherwise clear. No pneumothorax is seen. The skele dominick structures are osteopenic. The bony thorax is grossly intact. IMPRESSION: Mild cardiomegaly with no acute cardiopulmonary abnormality. ACT 112: Negative or not required by law. Electronically signed by: Cosme Pickens M.D. 11/25/2020 7:45 AM
--- NOTE | 2020-11-25 07:57 | Anesthesiology Progress Note ---
Date of Service November 25, 2020 Anesthesia Post Procedure Vital Signs Vital Signs: Temp Pulse Pulse Resp BP BP Pulse Ox 11/25/20 07:22 53 L 18 117/49 L 95 11/25/20 07:17 61 16 122/56 L 96 11/25/20 07:11 66 23 118/65 97 11/25/20 07:06 62 16 130/63 97 11/25/20 07:02 61 18 127/69 98 11/25/20 06:57 65 17 126/69 100 11/25/20 06:52 68 14 137/55 L 98 11/25/20 06:47 66 16 128/60 97 11/25/20 06:41 78 19 113/60 95 11/25/20 06:40 36.6 C 11/25/20 04:58 37.1 C 52 L 16 112/57 L 96 11/25/20 01:42 50 L 30 H 93 11/25/20 01:21 36.8 C 49 L 16 141/67 H 93 11/25/20 01:04 52 L 16 121/45 L 96 11/24/20 23:50 58 L 16 168/83 H 95 11/24/20 22:18 94 11/24/20 22:00 47 L 13 115/53 L 92 11/24/20 21:30 52 L 23 174/83 H 94 11/24/20 21:18 50 L 15 95 11/24/20 21:15 50 L 16 160/91 H 94 11/24/20 20:50 36.1 C L 55 L 18 133/67 96 Pain Intensity Right Abdomen: Pain Intensity: 3 Transfer of Care Handoff Completed per policy Notes Mental Status: alert / awake / arousable Patient Amnestic to Procedure: Yes Nausea / Vomiting: adequately controlled Pain: adequately controlled Airway Patency, RR, SpO2: stable & adequate BP & HR: stable & adequate Hydration State: stable & adequate Anesthetic Complications: no major complications apparent
--- NOTE | 2020-11-25 08:01 | CT Scan Report ---
CT abd pelvis IV con only CLINICAL HISTORY: Right lower quadrant abdominal pain COMPARISON STUDY: None. TECHNIQUE: The patient was scanned in a dynamic helical fashion during intravenous administration of 94 cc of Optiray 320 A dose lowering technique was utilized adhering to the principles of ALARA. CT DOSE: 447.58 mGy.cm FINDINGS: Lower chest: There are mild dependent atelectatic changes. Liver: There is borderline hepatic steatosis. No focal hepatic masses are visualized. The hepatic and portal veins appear patent. Gallbladder: Equivocal punctate calculus. Spleen: Normal in size and attenuation. Pancreas: Unremarkable. Adrenal glands: Unremarkable. Kidneys: There are right renal cysts. No solid renal masses are visualized. Bowel: There are no transition zones to indicate bowel obstruction. There is no evidence of acute div erticulitis. There is a dilated fluid-filled thick-walled appendix with periappendiceal stranding. Th e findings are indicative of acute appendicitis. Peritoneum: There is no intraperitoneal free air or abdominal ascites. There is a tiny fat-containing left inguinal hernia versus lipomatous inguinal canal. There is tiny fat-containing umbilical hernia Vasculature: The abdominal aorta is normal in course and caliber. Adenopathy: None. Pelvic viscera: There is mild prostatomegaly. Skeletal structures: No destructive osseous lesions are seen. IMPRESSION: 1. Acute appendicitis ACT 112: Negative or not required by law. Electronically signed by: Ross Saavedra M.D. 11/25/2020 8:00 AM
--- NOTE | 2020-11-25 08:25 | Operative Report (OR) ---
DATE OF PROCEDURE: 11/25/2020 NAME OF OPERATION: Laparoscopic appendectomy. PREOPERATIVE DIAGNOSIS: Acute appendicitis. POSTOPERATIVE DIAGNOSIS: Acute appendicitis. STAFF SURGEON: Choco Davidson MD ENVIRONMENTAL SERVICES COORDINATOR: LILO Balbuena ANESTHESIA: General. DESCRIPTION OF PROCEDURE: The patient was brought into the operating room and placed on the operatin g table in supine position. His abdomen was prepped and draped in the usual fashion. Pneumatic stoc kings, orogastric tube were placed. My assistant boiler operator helped with prepping, draping, removal of appendix, and closure of the wounds. An incision was made above the umbilicus, carrying dissection down to th e fascia, placing a Veress needle, producing pneumoperitoneum, placing an 11 mm port. Under visualiz ation, a 5 mm port was placed suprapubically and then a 12 mm port was placed in the left lower quadr ant. The appendix was adherent to the retroperitoneum. With mild difficulty, it was mobilized. The base was transected using an Endo-JULIO stapler. Then the mesoappendix was transected using an Endo-G IA stapler. After appropriate irrigation and hemostasis, the appendix was removed using an Endobag t hrough the 12 mm port site. All ports were then removed. Fascia at the umbilicus and left lower romaine drant closed using 0 Vicryl suture. The skin was reapproximated using subcuticular 4-0 Monocryl. Le ft lower quadrant closed also using Steri-Strips, other sites using Dermabond. The patient was trans ferred to recovery room in stable condition. We also used a small amount of FloSeal over the bed in the retroperitoneal area of dissection. Job ID: [id number]
[2020-11-25] MEDS ORDERED: amLODIPine BESYLATE 5 MG TAB PO SCH (09:00)
[2020-11-25] MEDS: DOCUSATE SODIUM/SENNA 50/8.6MG TAB PO SCH ×2 (12:39→21:24)
[2020-11-25] MEDS: SIMVASTATIN 20 MG TAB PO SCH (12:40)
[2020-11-25] MEDS: oxyCODONE HCL IR 5 MG TAB (IMMEDIATE RELEASE) PO PRN ×3 (12:52→21:26)
--- NOTE | 2020-11-25 13:25 | Electrocardiogram Report ---
Test Reason : Blood Pressure : / mmHG Vent. Rate : 047 BPM Atrial Rate : 047 BPM P-R Int : 184 ms QRS Dur : 114 ms QT Int : 440 ms P-R-T Axes : 046 010 013 degrees QTc Int : 389 ms Sinus bradycardia Incomplete right bundle branch block Borderline ECG When compared with ECG of 17-MAR-2017 14:36, ST no longer elevated in Anterior leads Confirmed by Anderson Araiza ([id number]) on 11/25/2020 1:24:43 PM Referred By: REFERRED SELF Confirmed By:Anderson Araiza
[2020-11-25 13:39] LABS: Hematocrit (blood only) 39.6 % (42-52); Hemoglobin 13.9 g/dL (14.0-18.0)
[2020-11-25 13:57] LABS: BUN Creatinine Ratio 9.9 (10-20); Calcium 8.3 mg/dl (8.5-10.1); Creatinine Clr Calc Pharmacy 54.3 ml/min; Est GFR (African American) 65.9 ml/min; Est GFR (Non-African American) 56.9 ml/min; Potassium 3.8 mmol/L (3.5-5.1)
--- NOTE | 2020-11-25 14:23 | Hospitalist Progress Note ---
Date of Service November 25, 2020 Assessment & Plan (1) Acute appendicitis: Acute appendicitis Management of appendicitis as per General Surgery. Now s/p appendectomy by Dr. Davidson Pt tolerated procedure well Hypertension, uncontrolled secondary to pain Analgesia Avoid NSAIDs Facilitate Amlodipine - currently BP at goal, continue to monitor Chronic bradycardia Systolic murmur, Outpatient 2D echo for systolic murmur Mood disorder, stable MINNIE on CPAP DVT prophylaxis. SCDs as per General Surgery admission orders Thank you very much for this consultation. Admission and Anticipated Discharge Date Admission Date: November 25, 2020 Subjective Patient seen in follow-up for hypertension, status post appendectomy Currently lying in bed, in no acute distress, patient's at the bedside Denies any fevers, chills, chest pain, shortness of breath Reports abdominal pain with movement, when at rest, reports no issues Says he ate lunch and denies any nausea or vomiting Able to ambulate to the bathroom, denies any dizziness or chest pain when up and walking Review of Systems Review of Systems: All systems reviewed & are unremarkable except as noted in HPI & below Constitutional: no fever and no chills Respiratory: no cough and no dyspnea Cardiovascular: no chest pain and no palpitations Gastrointestinal: + abdominal pain (post op pain w/ movement); no nausea and no vomiting Physical Exam Physical Exam: GENERAL: WD/WN M , no respiratory distress HEENT: NC/AT, alopecia, bespectacled, pink palpebral conjunctivae, EOMI NECK : Supple, no tenderness CHEST : CTA b/l, no tenderness HEART : Bradycardic in 50s, systolic murmur best heard over left sternal border ABDOMEN: Some distention, mild diffuse tenderness post-op, soft, + bowel sounds, incisions clean dry EXTREMITIES : No LE swelling/tenderness, moves extremities spontaneously NEUROLOGIC : Coherent, no facial asymmetry, no other gross focality SKIN: Normal color, warm Results & Data Results & Data ([facility]) Vital Signs (Past 12 Hours) Vital Signs Temp Pulse Pulse Pulse Resp BP BP 11/25/20 10:40 36.7 C 60 16 127/74 11/25/20 09:40 36.7 C 67 16 121/66 11/25/20 08:40 37.2 C 53 L 20 114/65 11/25/20 08:08 36.5 C 50 L 14 11/25/20 07:40 36.5 C 62 16 06/23/21 07:22 53 L 18 117/49 L 11/25/20 07:17 61 16 122/56 L 11/25/20 07:11 66 23 118/65 11/25/20 07:06 62 16 130/63 11/25/20 07:02 61 18 127/69 11/25/20 06:57 65 17 126/69 11/25/20 06:52 68 14 137/55 L 11/25/20 06:47 66 16 128/60 11/25/20 06:41 78 19 113/60 11/25/20 06:40 36.6 C 11/25/20 04:58 37.1 C 52 L 16 BP Pulse Ox 11/25/20 10:40 95 11/25/20 09:40 95 11/25/20 08:40 94 11/25/20 08:08 117/70 99 11/25/20 07:40 130/74 11/25/20 07:22 95 11/25/20 07:17 96 11/25/20 07:11 97 11/25/20 07:06 97 11/25/20 07:02 98 11/25/20 06:57 100 11/25/20 06:52 98 11/25/20 06:47 97 11/25/20 06:41 95 11/25/20 06:40 11/25/20 04:58 112/57 L 96 Laboratory Results 11/25/20 11/25/20 11/24/20 Range/Units 13:31 13:31 23:45 WBC (4.8-10.8) K/uL RBC (4.7-6.1) M/uL Hgb 13.9 L (14.0-18.0) g/dL Hct 39.6 L (42-52) % MCV (80-100) fL MCH (25-34) pg MCHC (32-36) g/dL RDW Std Deviation (36.4-46.3) fL RDW Coeff of Tanner (11.5-14.5) % Plt Count (130-400) K/uL MPV (7.4-10.4) fL Immature Gran % (Auto) % Neut % (Auto) % Lymph % (Auto) % [place] % (Auto) % Eos % (Auto) % Baso % (Auto) % Neut # (Auto) (1.4-6.5) K/uL Lymph # (Auto) (1.2-3.4) K/uL [place] # (Auto) (0.11-0.59) K/uL Eos # (Auto) (0-0.5) K/uL Baso # (Auto) (0-0.2) K/uL Immature Gran # (Auto) (0.00-0.02) K/uL Sodium 139 (136-145) mmol/L Potassium 3.8 (3.5-5.1) mmol/L Chloride 108 H (98-107) mmol/L Carbon Dioxide 27 (21-32) mmol/L Anion Gap 4.0 (3-11) BUN 13 (7-18) mg/dl Creatinine 1.27 D (0.6-1.4) mg/dl Est Cr Clr Drug Dosing 54.3 ml/min Est GFR ( Amer) 65.9 ml/min Est GFR (Non-Af Amer) 56.9 ml/min BUN/Creatinine Ratio 9.9 L (10-20) Glucose 128 H (70-99) mg/dl Calcium 8.3 L (8.5-10.1) mg/dl Magnesium (1.8-2.4) mg/dl Total Bilirubin (0.2-1) mg/dl AST (15-37) U/L ALT (12-78) U/L Alkaline Phosphatase (45-117) U/L Troponin I (0-0.045) ng/ml Total Protein (6.4-8.2) gm/dl Albumin (3.4-5.0) gm/dl Globulin (2.5-4.0) gm/dl Albumin/Globulin Ratio (0.9-2) Lipase (73-393) U/L TSH (0.300-4.500) uIu/ml Urine Color Urine Appearance (Clear) Urine pH (4.5-7.5) Ur Specific [place] (1.000-1.030) Urine Protein (Negative) Urine Glucose (UA) (Negative) Urine Ketones (Negative) Urine Blood (Negative) Urine Nitrite (Negative) Urine Bilirubin (Negative) Urine Urobilinogen (Negative) Ur Leukocyte Esterase (Negative) COVID-19 Eval Order SARS-CoV-2 (PCR) NEGATIVE (Negative) 11/24/20 11/24/20 11/24/20 Range/Units 23:45 21:20 21:10 WBC (4.8-10.8) K/uL RBC (4.7-6.1) M/uL Hgb (14.0-18.0) g/dL Hct (42-52) % MCV (80-100) fL MCH (25-34) pg MCHC (32-36) g/dL RDW Std Deviation (36.4-46.3) fL RDW Coeff of Tanner (11.5-14.5) % Plt Count (130-400) K/uL MPV (7.4-10.4) fL Immature Gran % (Auto) % Neut % (Auto) % Lymph % (Auto) % [place] % (Auto) % Eos % (Auto) % Baso % (Auto) % Neut # (Auto) (1.4-6.5) K/uL Lymph # (Auto) (1.2-3.4) K/uL [place] # (Auto) (0.11-0.59) K/uL Eos # (Auto) (0-0.5) K/uL Baso # (Auto) (0-0.2) K/uL Immature Gran # (Auto) (0.00-0.02) K/uL Sodium 139 (136-145) mmol/L Potassium 3.7 (3.5-5.1) mmol/L Chloride 106 (98-107) mmol/L Carbon Dioxide 27 (21-32) mmol/L Anion Gap 6.0 (3-11) BUN 19 H (7-18) mg/dl Creatinine 0.96 (0.6-1.4) mg/dl Est Cr Clr Drug Dosing 72.7 ml/min Est GFR ( Amer) 92.4 ml/min Est GFR (Non-Af Amer) 79.8 ml/min BUN/Creatinine Ratio 19.9 (10-20) Glucose 102 H (70-99) mg/dl Calcium 9.0 (8.5-10.1) mg/dl Magnesium 2.3 (1.8-2.4) mg/dl Total Bilirubin 0.5 (0.2-1) mg/dl AST 34 (15-37) U/L ALT 51 (12-78) U/L Alkaline Phosphatase 88 (45-117) U/L Troponin I < 0.015 (0-0.045) ng/ml Total Protein 8.2 (6.4-8.2) gm/dl Albumin 4.3 (3.4-5.0) gm/dl Globulin 3.9 (2.5-4.0) gm/dl Albumin/Globulin Ratio 1.1 (0.9-2) Lipase 264 (73-393) U/L TSH 1.750 (0.300-4.500) uIu/ml Urine Color Yellow Urine Appearance Clear (Clear) Urine pH 7.0 (4.5-7.5) Ur Specific [place] 1.025 (1.000-1.030) Urine Protein Negative (Negative) Urine Glucose (UA) Negative (Negative) Urine Ketones Negative (Negative) Urine Blood Negative (Negative) Urine Nitrite Negative (Negative) Urine Bilirubin Negative (Negative) Urine Urobilinogen Negative (Negative) Ur Leukocyte Esterase Negative (Negative) COVID-19 Eval Order Covid19 at [facility] SARS-CoV-2 (PCR) (Negative) 11/24/20 Range/Units 21:10 WBC 13.83 H (4.8-10.8) K/uL RBC 5.08 (4.7-6.1) M/uL Hgb 16.5 (14.0-18.0) g/dL Hct 46.1 (42-52) % MCV 90.7 (80-100) fL MCH 32.5 (25-34) pg MCHC 35.8 (32-36) g/dL RDW Std Deviation 43.4 (36.4-46.3) fL RDW Coeff of Tanner 13.3 (11.5-14.5) % Plt Count 185 (130-400) K/uL MPV 10.5 H (7.4-10.4) fL Immature Gran % (Auto) 0.1 % Neut % (Auto) 86.7 % Lymph % (Auto) 5.6 % [place] % (Auto) 6.2 % Eos % (Auto) 1.3 % Baso % (Auto) 0.1 % Neut # (Auto) 11.99 H (1.4-6.5) K/uL Lymph # (Auto) 0.78 L (1.2-3.4) K/uL [place] # (Auto) 0.86 H (0.11-0.59) K/uL Eos # (Auto) 0.18 (0-0.5) K/uL Baso # (Auto) 0.01 (0-0.2) K/uL Immature Gran # (Auto) 0.01 (0.00-0.02) K/uL Sodium (136-145) mmol/L Potassium (3.5-5.1) mmol/L Chloride (98-107) mmol/L Carbon Dioxide (21-32) mmol/L Anion Gap (3-11) BUN (7-18) mg/dl Creatinine (0.6-1.4) mg/dl Est Cr Clr Drug Dosing ml/min Est GFR ( Amer) ml/min Est GFR (Non-Af Amer) ml/min BUN/Creatinine Ratio (10-20) Glucose (70-99) mg/dl Calcium (8.5-10.1) mg/dl Magnesium (1.8-2.4) mg/dl Total Bilirubin (0.2-1) mg/dl AST (15-37) U/L ALT (12-78) U/L Alkaline Phosphatase (45-117) U/L Troponin I (0-0.045) ng/ml Total Protein (6.4-8.2) gm/dl Albumin (3.4-5.0) gm/dl Globulin (2.5-4.0) gm/dl Albumin/Globulin Ratio (0.9-2) Lipase (73-393) U/L TSH (0.300-4.500) uIu/ml Urine Color Urine Appearance (Clear) Urine pH (4.5-7.5) Ur Specific [place] (1.000-1.030) Urine Protein (Negative) Urine Glucose (UA) (Negative) Urine Ketones (Negative) Urine Blood (Negative) Urine Nitrite (Negative) Urine Bilirubin (Negative) Urine Urobilinogen (Negative) Ur Leukocyte Esterase (Negative) COVID-19 Eval Order SARS-CoV-2 (PCR) (Negative) Medications Administered Current Inpatient Medications Acetaminophen (Acetaminophen 325 Mg Tab) 650 mg PO Q4H PRN PRN Reason: Pain Stop: 12/25/20 07:42 Amlodipine Besylate (Amlodipine Besylate 5 Mg Tab) 10 mg PO DAILY [facility] Stop: 12/25/20 01:39 Last Admin: 11/25/20 01:50 Dose: 10 mg Documented by: Doxepin HCl (Doxepin Hcl 10 Mg Capsule) 10 mg PO HS [facility] Stop: 12/25/20 20:59 Fluticasone Propionate (Fluticasone Propionate Na Spr 16 Gm Btl) 2 sprays NA DAILY PRN PRN Reason: ALLERGIES Stop: 12/25/20 01:14 Hydromorphone HCl (Hydromorphone Inj 0.5 Mg/0.5 Ml Syr) 0.5 mg IV Q3HWA PRN PRN Reason: Pain Stop: 12/09/20 07:42 Lactated Ringer's (Lr) 1,000 mls @ 75 mls/hr IV .[id number] [facility] Stop: 12/25/20 01:14 Last Admin: 11/25/20 01:39 Dose: 75 mls/hr Documented by: Cefoxitin Sodium 2,000 mg/ (Dextrose) 60 mls @ 100 mls/hr IV Q6H [facility] Stop: 12/05/20 05:59 Last Infusion: 11/25/20 12:54 Dose: Infused Documented by: Promethazine HCl 12.5 mg/ (Sodium Chloride) 50.5 mls @ 204 mls/hr IV Q6H PRN PRN Reason: Nausea And Vomiting Stop: 12/25/20 07:42 Promethazine HCl 25 mg/ Sodium (Chloride) 51 mls @ 204 mls/hr IV Q6H PRN PRN Reason: Nausea And Vomiting Stop: 12/25/20 07:42 Morphine Sulfate (Morphine Sulfate 4 Mg/Ml 1 Ml Carp\Vial) 3 mg IV Q3H PRN PRN Reason: Pain Stop: 12/09/20 01:14 Last Admin: 11/25/20 07:57 Dose: 3 mg Documented by: Ondansetron HCl (Ondansetron Inj 2 Mg/Ml 2 Ml Vial) 4 mg IV Q6H PRN PRN Reason: Nausea And Vomiting Stop: 12/25/20 01:14 Oxycodone HCl (Oxycodone Hcl Ir 5 Mg Tab (Immediate Release)) 5 mg PO Q4HWA PRN PRN Reason: Pain Stop: 12/09/20 07:42 Last Admin: 11/25/20 12:52 Dose: 5 mg Documented by: Senna/Docusate Sodium (Docusate Sodium/Senna 50/8.6mg Tab) 1 tab PO BID [facility] Stop: 12/25/20 08:59 Last Admin: 11/25/20 12:39 Dose: 1 tab Documented by: Sertraline HCl (Sertraline Hcl 100 Mg Tablet) 100 mg PO HS [facility] Stop: 12/25/20 20:59 Simvastatin (Simvastatin 20 Mg Tab) 20 mg PO DAILY [facility] Stop: 12/25/20 08:59 Last Admin: 11/25/20 12:40 Dose: 20 mg Documented by: (1) Acute appendicitis Acute appendicitis type: with localized peritonitis Appendicitis abscess presence: without abscess Appendicitis gangrene presence: unspecified whether gangrene present Appendicitis perforation presence: without perforation Qu alified Code(s): K35.30 - Acute appendicitis with localized peritonitis, without perforation or gangrene
[2020-11-25] MEDS ORDERED: LORATADINE 10 MG TAB PO ONE (17:35)
[2020-11-25] MEDS ORDERED: DOXEPIN HCL 10 MG CAPSULE PO SCH (21:00)
[2020-11-25] MEDS ORDERED: SERTRALINE HCL 100 MG TABLET PO SCH (21:00)
[2020-11-26] MEDS: oxyCODONE HCL IR 5 MG TAB (IMMEDIATE RELEASE) PO PRN (04:46)
[2020-11-26] MEDS: cefOXitin 2,000 MG in DEXTROSE 5% 50 ML IV SCH (05:53)
[2020-11-26 06:23] LABS: Hematocrit (blood only) 38.7 % (42-52); Hemoglobin 13.1 g/dL (14.0-18.0); Mean Corpuscular Hemoglobin 32.2 pg (25-34); Mean Corpuscular Hgb Conc 33.9 g/dL (32-36); Mean Corpuscular Volume 95.1 fL (80-100); Mean Platelet Volume 10.5 fL (7.4-10.4); Platelet Count 157 K/uL (130-400); RDW Coefficient of Variation 13.7 % (11.5-14.5); RDW Standard Deviation 47.5 fL (36.4-46.3); Red Blood Count 4.07 M/uL (4.7-6.1)
[2020-11-26] MEDS: LACTATED RINGER'S 1,000 ML IV SCH (06:35)
--- NOTE | 2020-11-26 06:45 | Surgery Progress Note ---
Date of Service November 26, 2020 Assessment & Plan (1) S/P laparoscopic appendectomy: Patient's vital signs are stable he seems to be doing well Plan to discharge him home later today Pain medication and antibiotics will be sent to his pharmacy Return to clinic 1 to 2 weeks for checkup-no sutures to remove Admission and Anticipated Discharge Date Admission Date: November 25, 2020 Results & Data ([facility]) Vital Signs (Past 12 Hours) Vital Signs Temp Pulse Pulse Pulse Resp BP Pulse Ox 11/26/20 04:29 37.3 C 50 L 16 131/72 97 11/26/20 03:10 60 12 96 11/25/20 23:12 37.2 C 48 L 18 127/66 95 11/25/20 22:52 58 L 22 92 11/25/20 19:41 36.5 C 55 L 20 148/66 H 93 PG Care Time/CCT Total # of Minutes Spent Total Time Spent with Patient: Total time spent is greater than 50% in coord ination of care (as documented) at patient's floor/unit and/or counseling patient: Coding Level of Care Code None Diagnoses S/P laparoscopic appendectomy Z90.49
[2020-11-26 06:55] LABS: BUN Creatinine Ratio 13.4 (10-20); Calcium 8.1 mg/dl (8.5-10.1); Creatinine Clr Calc Pharmacy 69.6 ml/min; Est GFR (African American) 89.1 ml/min; Est GFR (Non-African American) 76.8 ml/min; Potassium 3.6 mmol/L (3.5-5.1)
[2020-11-26 07:21] VITALS: BP 117/60; TEMP 98.2; O2SAT 93
--- NOTE | 2020-11-26 07:54 | Hospitalist Progress Note ---
Date of Service November 26, 2020 Assessment & Plan (1) Acute appendicitis: Acute appendicitis Management of appendicitis as per General Surgery. Now s/p appendectomy by Dr. Davidson Pt tolerated procedure well Hypertension, initially uncontrolled secondary to pain Analgesia Avoid NSAIDs Facilitate Amlodipine - currently BP at goal, continue to monitor Chronic bradycardia Systolic murmur, Outpatient 2D echo for systolic murmur Follow up as outpt w/ PCP arranged Mood disorder, stable MINNIE on CPAP DVT prophylaxis. SCDs as per General Surgery admission orders Thank you very much for this consultation. Admission and Anticipated Discharge Date Admission Date: November 25, 2020 Subjective Patient seen in follow-up for hypertension, status post appendectomy Currently lying in bed, in no acute distress Denies any fevers, chills, chest pain, shortness of breath Reports abdominal pain with movement, when at rest he reports no issues Says he ate w/o any difficulty, denies any nausea or vomiting Able to ambulate to the bathroom, denies any dizziness or chest pain when up and walking Review of Systems Review of Systems: All systems reviewed & are unremarkable except as noted in HPI & below Constitutional: no fever and no chills Respiratory: no cough and no dyspnea Cardiovascular: no chest pain and no palpitations Gastrointestinal: + abdominal pain (post op pain w/ movement); no nausea and no vomiting Physical Exam Physical Exam: GENERAL: WD/WN M , no respiratory distress HEENT: NC/AT, alopecia, bespectacled, pink palpebral conjunctivae, EOMI NECK : Supple, no tenderness CHEST : CTA b/l, no tenderness HEART : Bradycardic in 50s, systolic murmur best heard over left sternal border ABDOMEN: Some distention, mild diffuse tenderness post-op, soft, + bowel sounds, incisions clean dry EXTREMITIES : No LE swelling/tenderness, moves extremities spontaneously NEUROLOGIC : Coherent, no facial asymmetry, no other gross focality SKIN: Normal color, warm Results & Data Results & Data ([facility]) Vital Signs (Past 12 Hours) Vital Signs Temp Pulse Pulse Resp BP Pulse Ox 11/26/20 07:20 36.8 C 53 L 14 117/60 93 11/26/20 04:29 37.3 C 50 L 16 131/72 97 11/26/20 03:10 60 12 96 11/25/20 23:12 37.2 C 48 L 18 127/66 95 11/25/20 22:52 58 L 22 92 Laboratory Results 11/26/20 11/26/20 11/25/20 Range/Units 05:55 05:55 13:31 WBC 7.20 (4.8-10.8) K/uL RBC 4.07 L (4.7-6.1) M/uL Hgb 13.1 L (14.0-18.0) g/dL Hct 38.7 L (42-52) % MCV 95.1 (80-100) fL MCH 32.2 (25-34) pg MCHC 33.9 (32-36) g/dL RDW Std Deviation 47.5 H (36.4-46.3) fL RDW Coeff of Tanner 13.7 (11.5-14.5) % Plt Count 157 (130-400) K/uL MPV 10.5 H (7.4-10.4) fL Sodium 140 139 (136-145) mmol/L Potassium 3.6 3.8 (3.5-5.1) mmol/L Chloride 108 H 108 H (98-107) mmol/L Carbon Dioxide 27 27 (21-32) mmol/L Anion Gap 5.0 4.0 (3-11) BUN 13 13 (7-18) mg/dl Creatinine 0.99 1.27 D (0.6-1.4) mg/dl Est Cr Clr Drug Dosing 69.6 54.3 ml/min Est GFR ( Amer) 89.1 65.9 ml/min Est GFR (Non-Af Amer) 76.8 56.9 ml/min BUN/Creatinine Ratio 13.4 9.9 L (10-20) Glucose 100 H 128 H (70-99) mg/dl Calcium 8.1 L 8.3 L (8.5-10.1) mg/dl 11/25/20 Range/Units 13:31 WBC (4.8-10.8) K/uL RBC (4.7-6.1) M/uL Hgb 13.9 L (14.0-18.0) g/dL Hct 39.6 L (42-52) % MCV (80-100) fL MCH (25-34) pg MCHC (32-36) g/dL RDW Std Deviation (36.4-46.3) fL RDW Coeff of Tanner (11.5-14.5) % Plt Count (130-400) K/uL MPV (7.4-10.4) fL Sodium (136-145) mmol/L Potassium (3.5-5.1) mmol/L Chloride (98-107) mmol/L Carbon Dioxide (21-32) mmol/L Anion Gap (3-11) BUN (7-18) mg/dl Creatinine (0.6-1.4) mg/dl Est Cr Clr Drug Dosing ml/min Est GFR ( Amer) ml/min Est GFR (Non-Af Amer) ml/min BUN/Creatinine Ratio (10-20) Glucose (70-99) mg/dl Calcium (8.5-10.1) mg/dl Medications Administered Current Inpatient Medications Acetaminophen (Acetaminophen 325 Mg Tab) 650 mg PO Q4H PRN PRN Reason: Pain Stop: 12/25/20 07:42 Last Admin: 11/26/20 04:47 Dose: 650 mg Documented by: Amlodipine Besylate (Amlodipine Besylate 5 Mg Tab) 10 mg PO DAILY JULIANA Stop: 12/25/20 01:39 Last Admin: 11/25/20 01:50 Dose: 10 mg Documented by: Doxepin HCl (Doxepin Hcl 10 Mg Capsule) 10 mg PO HS JULIANA Stop: 12/25/20 20:59 Last Admin: 11/25/20 21:24 Dose: 10 mg Documented by: Fluticasone Propionate (Fluticasone Propionate Na Spr 16 Gm Btl) 2 sprays NA DAILY PRN PRN Reason: ALLERGIES Stop: 12/25/20 01:14 Hydromorphone HCl (Hydromorphone Inj 0.5 Mg/0.5 Ml Syr) 0.5 mg IV Q3HWA PRN PRN Reason: Pain Stop: 12/09/20 07:42 Cefoxitin Sodium 2,000 mg/ (Dextrose) 60 mls @ 100 mls/hr IV Q6H JULIANA Stop: 12/05/20 05:59 Last Infusion: 11/26/20 06:29 Dose: Infused Documented by: Promethazine HCl 12.5 mg/ (Sodium Chloride) 50.5 mls @ 204 mls/hr IV Q6H PRN PRN Reason: Nausea And Vomiting Stop: 12/25/20 07:42 Promethazine HCl 25 mg/ Sodium (Chloride) 51 mls @ 204 mls/hr IV Q6H PRN PRN Reason: Nausea And Vomiting Stop: 12/25/20 07:42 Morphine Sulfate (Morphine Sulfate 4 Mg/Ml 1 Ml Carp\Vial) 3 mg IV Q3H PRN PRN Reason: Pain Stop: 12/09/20 01:14 Last Admin: 11/25/20 07:57 Dose: 3 mg Documented by: Ondansetron HCl (Ondansetron Inj 2 Mg/Ml 2 Ml Vial) 4 mg IV Q6H PRN PRN Reason: Nausea And Vomiting Stop: 12/25/20 01:14 Oxycodone HCl (Oxycodone Hcl Ir 5 Mg Tab (Immediate Release)) 5 mg PO Q4HWA PRN PRN Reason: Pain Stop: 12/09/20 07:42 Last Admin: 11/26/20 04:46 Dose: 5 mg Documented by: Senna/Docusate Sodium (Docusate Sodium/Senna 50/8.6mg Tab) 1 tab PO BID JULIANA Stop: 12/25/20 08:59 Last Admin: 11/25/20 21:24 Dose: 1 tab Documented by: Sertraline HCl (Sertraline Hcl 100 Mg Tablet) 100 mg PO HS JULIANA Stop: 12/25/20 20:59 Last Admin: 11/25/20 21:24 Dose: 100 mg Documented by: Simvastatin (Simvastatin 20 Mg Tab) 20 mg PO DAILY JULIANA Stop: 12/25/20 08:59 Last Admin: 11/25/20 12:40 Dose: 20 mg Documented by: (1) Acute appendicitis Acute appendicitis type: with localized peritonitis Appendicitis abscess presence: without abscess Appendicitis gangrene presence: unspecified whether gangrene present Appendicitis perforation presence: without perforation Qualified Code(s): K35.30 - Acute appendicitis with localized peritonitis, without perforation or gangrene
[2020-11-26] MEDS ORDERED: POTASSIUM CHLORIDE CRTAB 20 MEQ TABCR PO STA (07:55)
[2020-11-26] MEDS: SIMVASTATIN 20 MG TAB PO SCH (08:27)
[2020-11-26] MEDS: DOCUSATE SODIUM/SENNA 50/8.6MG TAB PO SCH (08:27)
[2020-11-26] MEDS: amLODIPine BESYLATE 5 MG TAB PO SCH (08:28)
--- NOTE | 2020-11-26 08:35 | Anesthesiology Progress Note ---
Date of Service November 26, 2020 Anesthesia Post Procedure Vital Signs Vital Signs: Temp Pulse Pulse Pulse Resp BP BP 11/26/20 07:20 36.8 C 53 L 14 117/60 11/26/20 04:29 37.3 C 50 L 16 131/72 11/26/20 03:10 60 12 11/25/20 23:12 37.2 C 48 L 18 127/66 11/25/20 22:52 58 L 22 11/25/20 19:41 36.5 C 55 L 20 148/66 H 11/25/20 16:20 36.9 C 54 L 16 147/72 H 11/25/20 10:40 36.7 C 60 16 127/74 11/25/20 09:40 36.7 C 67 16 121/66 11/25/20 08:40 37.2 C 53 L 20 114/65 Pulse Ox 11/26/20 07:20 93 11/26/20 04:29 97 11/26/20 03:10 96 11/25/20 23:12 95 11/25/20 22:52 92 11/25/20 19:41 93 11/25/20 16:20 90 11/25/20 10:40 95 11/25/20 09:40 95 11/25/20 08:40 94 Pain Intensity Right Abdomen: Pain Intensity: 2 Notes Mental Status: alert / awake / arousable and participated in evaluation Patient Amnestic to Procedure: Yes Nausea / Vomiting: adequately controlled Pain: adequately controlled Airway Patency, RR, SpO2: stable & adequate BP & HR: stable & adequate Hydration State: stable & adequate Anesthetic Complications: no major complications apparent
[2020-11-26 09:20] VITALS: PULSE 50
--- NOTE | 2020-11-30 14:43 | Discharge Summary (DS) ---
DATE OF ADMISSION: 11/25/2020 DATE OF DISCHARGE: 11/26/2020 PRINCIPAL DIAGNOSIS: Acute appendicitis. PROCEDURES: On 11/25/2020, the patient underwent a laparoscopic appendectomy. HISTORY OF PRESENT ILLNESS: The patient is a 70-year-old male who presented to the Emergency Room wi th acute abdominal pain. The patient was admitted to the hospital and taken to the operating room on 11/25/2020 where he underwent laparoscopic appendectomy, which he tolerated very well. He was kept overnight and felt stable for discharge on 11/26/2020, to be followed in the surgical clinic. Job ID: [id number]
== END 2020-11-26 10:25 | disposition home or self-care (01) ==
LOC: 3E 20:45 → ED 20:45 → 3E 11-25 01:04